=== PATIENT | male | born 1940 | race Caucasian/White ===

== ENCOUNTER → 2017-12-26 08:00 | Outpatient (CLI) | payer MEDICARE, BC, SELFPAY ==
--- NOTE | 2017-12-26 08:00 | LES_PTH ---
PATIENT: LIA GO LOC: [facility] U#:[id number] AGE/SX: 85/M ROOM: RE12/26/[address]: Dr. Quan Dos Santos MD : 1940 BED: DIS: SPEC #: [id number] RECD: 12/26/17 09:50 STATUS: MIC SARA #: [id number] KOFI: 12/26/17 08:[address]: Quan Dos Santos DEPT: SURGICAL PATHOLOGY RECD BY: Tanya Israel Tissues: A - Skin of forehead B - Skin of upper extremity and shoulder Procedures: Surgery Specimen Level IV HEADER OPERATION: Punch biopsy, and shave biopsy PRE-OP DIAGNOSIS: Uncertain neoplasm TISSUE SUBMITTED: A. Punch biopsy, right forehead, B. Shave biopsy, left scapula MICROSCOPIC DIAGNOSIS A. Right forehead, lesion, punch biopsy: Basal cell carcinoma. B. Left scapula, shave biopsy: Basal cell carcinoma, extending to peripheral and deep margins of the specimen. SJ:angie 12/27/17 MICROSCOPIC DESCRIPTION Slides are reviewed. GROSS DESCRIPTION A - Received in fixative is one container labeled with the patient's name and designated right forehead. The specimen consists of a cylindrical fragment of mejia tissue measuring 0.6 cm in length and 0.2 cm in diameter. The specimen is totally submitted in one cassette. B - Received in fixative is one container labeled with the patient's name and designated left scapula. The specimen consists of a light mejia shave biopsy of skin measuring 1.5 x 1 x 0.2 cm. The specimen is inked, serially sectioned and totally submitted in one cassette. / AM:angie 12/26/17 TC:0 CPT: 12448 x2
== END ==
PROVIDERS: Visit Provider Surgery
DX: D48.5 Neoplasm of uncertain behavior of skin (principal)
CPT/HCPCS: 88305

== ENCOUNTER 2018-01-28 08:42 | Day surgery (SDC) | payer MEDICARE, BC, SELFPAY ==
--- NOTE | 2018-01-21 10:59 | EKG12_ITS ---
Test Reason : PRE-OP Blood Pressure : / mmHG Vent. Rate : 055 BPM Atrial Rate : 055 BPM P-R Int : 174 ms QRS Dur : 098 ms QT Int : 422 ms P-R-T Axes : 041 -05 074 degrees QTc Int : 403 ms Sinus bradycardia Otherwise normal ECG Confirmed by LISA PEREZ, LEATHA ([id number]), clinical editor LUISANA WALLER ([id number]) on 01/22/2018 1:23:00 PM Referred By: Quan Dos Santos Confirmed By:LEATHA GONZALEZ MD
[2018-01-21 11:12] LABS: Hematocrit 42.6 % (40-54); Hemoglobin 14.9 g/dl (13.0-16.5); Mean Corpuscular Hgb 32.6 pg (27.0-32.0); Mean Corpuscular Volume 93.2 fL (80-94); Mean Platelet Vol. 9.5 fl (6.2-12.0); Platelet Count 165 K/mm3 (150-450); RBC Distribution Width CV 12.5 % (11.6-14.6); RBC Distribution Width SD 42.3 fl (35.1-43.9); Red Blood Count 4.57 M/mm3 (4.6-6.2); White Blood Count 5.6 K/mm3 (4.4-11.0)
[2018-01-21 11:32] LABS: Anion Gap 7 (5-15); BUN 20 mg/dL (7-18); BUN/Creat Ratio 18.9 RATIO (10-20); Calcium,Total 8.4 mg/dL (8.5-10.1); Chloride 106 mmol/L (98-107); Creatinine, Serum 1.06 mg/dL (0.70-1.30); EST Glomerular Filtration Rate 72 mL/min (>60); Est Glom Filt Rate - Afr Amer 87 mL/min (>60); Glucose 92 mg/dL (74-106); Sodium Level 140 mmol/L (136-145)
[2018-01-21 11:36] LABS: Scan Indicated on CBC? Y/N NO
[2018-01-28] VITALS (11 sets, daily range): BP systolic 151–185; BP diastolic 82–100; PULSE 52–59; RESP 16–18; TEMP 36.3–36.5; O2SAT 94–98; BMI 28.1
[2018-01-28] MEDS: Cefazolin 2 GM in 0.9% Normal Saline 100 ML IV (11:04)
--- NOTE | 2018-01-28 11:05 | TISS_PTH ---
PATIENT: LIA GO LOC: [facility] U#:[id number] AGE/SX: 77/M ROOM: RE01/28/[address]: Dr. Quan Dos Snatos MD : 1940 BED: DIS: 01/28/2018 SPEC #: [id number] RECD: 01/28/18 14:21 STATUS: MIC SARA #: [id number] KOFI: 01/28/18 11:[address]: Quan Dos Santos DEPT: SURGICAL PATHOLOGY RECD BY: Tanya Israel ENTERED: 01/28/18 15:13 SP TYPE: Tissue Bx JOSE RAFAEL DR: Dr. Andrae Dos Santos III, MD Tissues: A - Skin of forehead B - Skin of back, NOS Procedures: Surgery Specimen Level IV HEADER OPERATION: Wide excision right forehead skin cancer and wide re-excision PRE-OP DIAGNOSIS: Basal cell cancer right forehead; Basal cell cancer left upper back TISSUE SUBMITTED: A - Basal cell cancer right forehead, suture garcía lateral aspect of ellipse, B - Basal cell cancer left upper back, suture garcía superior margin MICROSCOPIC DIAGNOSIS A. Skin lesion of right forehead, excisional biopsy: Basal cell carcinoma, superficial nodular and focally ulcerated, completely excised. Actinic change with solar elastosis. B. Skin lesin of left upper back, excisional biopsy: Cicatrix. No evidence of malignancy. AM:angie 01/29/18 COMMENT Reference is made to the patient?s right forehead and left scapula shave biopsies ([id number]), in which basal cell carcinoma was identified. MICROSCOPIC DESCRIPTION Slides are reviewed. GROSS DESCRIPTION A - Received in fixative is one container labeled with the patient's name and designated basal cell cancer right forehead, suture garcía lateral aspect of ellipse. The specimen consists of a mejia-white skin ellipse measuring 6.5 x 2.5 cm and up to 0.5 cm in thickness. The specimen is oriented by a suture marking lateral aspect of ellipse assigned as 9 o?clock tip. The specimen is inked as follows: 12 o?clock margin ? black, 6 o?clock margin ? blue, 3 o?clock tip ? yellow, 9 o?clock tip ? green. The specimen is serially sectioned and submitted entirely in seven cassettes as follows: 1 ? medial and lateral tip (3 and 9 o?clock tip), 2-7 ? rest of the specimen. / SJ:angie 01/28/18 B - Received in fixative is one container labeled with the patient's name and designated basal cell carcinoma left upper back, suture garcía superior margin. The specimen consists of a mejia-white skin ellipse measuring 5 x 1.6 cm and up to 2 cm in thickness. A suture is noted at one tip marking superior margin. This is assigned as 12 o?clock tip. The specimen is inked as follows: 12 o?clock tip ? yellow, 6 o?clock tip ? green, 12 to 6 o?clock margin including 3 o?clock margin ? black and 6 to 12 o?clock margin including 9 o?clock margin ? blue. The specimen is serially sectioned and submitted entirely in eight cassettes as follows: 1 ? superior and inferior tip, 2-8 ? rest of the specimen. / SJ:angie 01/28/18 TC:0 CPT: 89439 x2
--- NOTE | 2018-01-28 11:13 | PCM.DC.GS ---
Discharge Diet: Light diet - advance as tolerated - if you have questions about your diet instructions, please talk to you doctor. Discharge Activity: May Not Drive - for 1 week or while taking narcotic pain medicine. May shower in (days): 1 Lifting Restrictions: 10 pounds Call your doctor if your incision/area has: Continuous Slow Oozing, Sudden Increased Bleeding, Increased Pain/ Swelling, Increased Redness, Foul Smelling Discharge Call your doctor if you observe: Fever of 101 or Higher Suture Line Care: Avoid Pulling/Pushing, Avoid Pinching/Bending Additional Dressing/Incision Instructions:: You may remove your dressings in 3 days. Allergies/Adverse Reactions: Allergies erythromycin base Allergy (Unknown, Verified 01/21/18 08:21) unknown Medications to take at Discharge nicolás seed oil-omega 3-6-9 1,000 mg (580 mg) capsule 1 cap PO .daily ea 12/06/17 cholecalciferol (vitamin D3) 2,000 unit capsule 2,000 unit PO QDAY cap 12/06/17 coenzyme Q10 100 mg capsule 100 mg PO QDAY 12/06/17 cranberry concentrate-ascorbic acid 4,200 mg-20 mg capsule 1 cap PO .daily ea 12/06/17 ginkgo biloba 60 mg capsule 60 mg PO QDAY cap 12/06/17 lutein 6 mg capsule 6 mg PO QDAY 12/06/17 lycopene 10 mg capsule 10 mg PO QDAY 12/06/17 multivitamin tablet 1 tab PO QAM 12/06/17 saw palmetto fruit 450 mg capsule 450 mg PO QDAY cap 12/06/17 selenium 200 mcg capsule 200 mcg PO QDAY 12/06/17 vitamin B complex capsule 1 cap PO .qod ea 12/06/17 vitamin K2 40 mcg tablet 40 mcg PO QDAY 12/06/17 Ascorbic Acid [Vitamin C] 1,000 mg PO DAILY 01/21/18 Primary Care Physician: Andrae Dos Santos III, MD [Primary Care Provider] - Please Follow Up With: Quan Dos Santos MD - [phone] When: Call to make an appointment to be seen on Sunday please
[2018-01-28] MEDS: Bupivacaine Mpf 0.5% 30 ML VIAL (11:24)
--- NOTE | 2018-01-28 12:58 | PCM.OPRPT ---
Problem List (1) Skin cancer Status: Acute Report of Operation Date of Procedure: 01/28/18 Pre-Operative Diagnosis: Basal cell skin cancer right forehead. Basal cell skin cancer left posterior shoulder Post-Operative Diagnosis: same Surgery/Procedure Performed:: Excision right forehead skin cancer and left posterior shoulder skin cancer Description of Surgical Findings:: Timeout and informed consent was obtained. 77-year-old gent was taken the operating room. He was initially placed supine on the table. The right forehead was sterilely prepped and 1% lidocaine mixed 50-50 with 0.5% Marcaine was used as a local anesthetic. A total of 20 cc was used. A transverse elliptical 6.5 x 2.4 cm ellipse of skin was created. Progressive subcutaneous flaps were raised completely raising the galea particularly posteriorly. A suture is marked in the medial aspect of the ellipse as a specimen was submitted. The wound edges were closed with interrupted 3-0 Vicryl subdermal stitches. The skin edges and finally approximated in a running mattress sutures of 5-0 nylon. 4 x 4 dressing followed by Coban dressing was uses a wrap. The patient was then placed in the right lateral decubitus position with careful ankle protection knee protection shoulder protection and head protection. The left upper back lesion was prepped and draped with ChloraPrep. 16 cc of local was used. A slightly oblique vertical excision measuring 4.5 x 1.6 cm was created. A suture was placed in the superior aspect of that ellipse. The wound edges approximated with interrupted 3-0 Vicryl subdermal stitches in the skin edges approximated with simple sutures of 3-0 nylon. Telfa and OpSite dressing applied. That specimen also was was submitted in formalin for analysis. Sponge, instrument, needle counts were reported to the surgeon to be correct. Blood loss was approximately 150 cc. There were no apparent complications. He was taken to the recovery or [facility] condition. Specimens include skin lesions ?2. Drains none. Blood loss 150 cc. Quan Dos Santos M.D., F.A.C.S. Type of Anesthesia:: Local MAC
== END 2018-01-28 15:03 | disposition home or self-care (01) ==
LOC: SDC 08:43 → AC 08:43
PROVIDERS: Family Provider Family Medicine; PCP Family Medicine; Visit Provider Surgery
PROC: (CPT 11606; principal; 2018-01-28 10:50)
DX: C44.319 Basal cell carcinoma of skin of other parts of face (principal); C44.619 Basal cell carcinoma of skin of left upper limb, including shoulder; L57.8 Other skin changes due to chronic exposure to nonionizing radiation; L90.5 Scar conditions and fibrosis of skin; K21.9 Gastro-esophageal reflux disease without esophagitis; E78.00 Pure hypercholesterolemia, unspecified; R97.20 Elevated prostate specific antigen [PSA]; Z79.899 Other long term (current) drug therapy; Z86.19 Personal history of other infectious and parasitic diseases; Z87.891 Personal history of nicotine dependence
CPT/HCPCS: 11606; 11646; 36415; 80048; 85027; 88305; J7120

== ENCOUNTER 2021-03-04 06:17 | Emergency (ER) | payer MEDICARE, BC, SELFPAY ==
[2021-03-04 06:17] VITALS: PULSE 72; RESP 18; TEMP 36.1; O2SAT 97; BMI 26.8
[2021-03-04 06:22] VITALS: BP 169/90; PULSE 72; RESP 18; TEMP 36.1; O2SAT 97
[2021-03-04 06:24] VITALS: BP 169/90
--- NOTE | 2021-03-04 07:40 | EDS_ITS ---
HPI History of Present Illness Chief Complaint: Male Pain/Injury Informant: patient Pain Onset: Weeks (1) Context: Gradual Onset and - (soreness) Timing: Continuous Current Severity: Moderate Maximum Severity: Moderate Worsened by: touching affected area, walking and causing rubbing Relieved by: leaving alone Penile Discharge Genital Discharge Amount: None Urinary Symptoms Genitourinary Symptoms: No Symptoms Narrative Narrative: Patient presenting with about a week of gradual worsening of a recurrent abscess on his penis. He states it has been oozing material off and on he has been squeezing it here and there to get it out, but all of a sudden tonight it has become much larger and more sore. He had it I&Dd once in the past, and is requesting that again. He denies any systemic symptoms or problems urinating or scrotal pain. [facility] Medical History Acid reflux Skin lesion of face Home Medications nicolás seed oil-omega 3-6-9 1,000 mg (580 mg) capsule 1 cap PO .daily ea 12/06/17 [History Last Taken Unknown] cholecalciferol (vitamin D3) 50 mcg (2,000 unit) capsule 2,000 unit PO QDAY cap 12/06/17 [History Last Taken Unknown] coenzyme Q10 100 mg capsule 100 mg PO QDAY 12/06/17 [History Last Taken Unknown] cranberry concentrate-ascorbic acid 4,200 mg-20 mg capsule 1 cap PO .daily ea 12/06/17 [History Last Taken Unknown] ginkgo biloba 60 mg capsule 60 mg PO QDAY cap 12/06/17 [History Last Taken Unknown] lutein 6 mg capsule 6 mg PO QDAY 12/06/17 [History Last Taken Unknown] lycopene 10 mg capsule 10 mg PO QDAY 12/06/17 [History Last Taken Unknown] multivitamin 1 tab PO QAM 12/06/17 [History Last Taken Unknown] saw palmetto 450 mg capsule 450 mg PO QDAY cap 12/06/17 [History Last Taken Unknown] selenium 200 mcg capsule 200 mcg PO QDAY 12/06/17 [History Last Taken Unknown] vitamin B complex 1 cap PO .qod ea 12/06/17 [History Last Taken Unknown] vitamin K2 40 mcg tablet 40 mcg PO QDAY 12/06/17 [History Last Taken Unknown] ascorbic acid (vitamin C) 1,000 mg PO DAILY 01/21/18 [History Last Taken Unknown] sulfamethoxazole-trimethoprim [Bactrim DS] 1 tab PO BID #20 tab 03/04/21 [Rx Last Taken Unknown] Allergy/AdvReac Type Severity Reaction Status Date / Time erythromycin base Allergy Unknown unknown Verified 03/04/21 06:22 Family History Sister Breast cancer Brother Heart disease High cholesterol Surgical History History of appendectomy History of radical excision of skin lesion history sclerosing varicose veins Social History Smoking Status: Former smoker alcohol intake: current alcohol intake frequency: a few times a month substance use type: does not use ROS ROS ED Constitutional Constitutional ED: Denies chills or fever(s) Genitourinary Genitourinary ED: Reports as per HPI and penile swelling; Denies dysuria, hematuria or urinary frequency Integumentary Reports as per HPI and abscess; Denies rash EXAM Physical Exam Const Vital Signs: 03/04/21 06:17 03/04/21 06:22 03/04/21 06:24 Temperature 97 F L 97 F L Temperature Source Temporal Temporal Pulse Rate 72 72 Respiratory Rate 18 18 Blood Pressure 169/90 H 169/90 H Blood Pressure Mean 116 116 Pulse Ox 97 97 Positive well nourished and well developed General Appearance ED: well developed and NAD Penis: circumcised and other Focally swollen area right lateral distal shaft, just proximal to the alicia radiata and not involving the glans, 2 punctate areas of purulent discharge expressible. Entire area is quite tender. Meatus: meatus normal Scrotum: testes descended bilaterally; Negative for tenderness, erythema or scrotal swelling Neuro oriented x3 and CN's II-XII intact bilaterally Sensorium / Orientation: alert Psych mental status grossly normal and thought process normal Skin Skin Narrative: Single abscess approximately 2 or 3 cm in diameter distal right penile shaft as above; scant amount of purulent material draining from 2 different areas on it. No other lesions. Rashes: no rashes MDM MDM MDM Narrative Medical decision making narrative: As per the procedure note, the infection was drained. It is not large enough to place a packing. It was dressed with bacitracin by myself. My suspicion is that this is a residual epidermoid cyst that became reinfected. The patient said that he has been having residual something underneath the skin ever since this first happened, so I am referring him to urology for reevaluation after the infection has healed. He is comfortable with this plan. He was placed on Bactrim. Procedures Other Procedures Procedure(s): Incision and drainage abscess penis-the area was locally anesthetized with 3 cc plain 1% lidocaine after prepping with isopropanol. I then stabbed the dorsal most draining area as superficially as possible with a #11 blade, yielding purulent material. I deloculated this area into the other draining area as best that I could bluntly. There was no significant bleeding with this. I was then able to express quite a bit of solid white material that was not pus, more consistent with an epidermoid cyst which is probably what this lesion is to begin with. No suturing needed, very small incision was made with minimal bleeding. I am confident that I did not enter the corpora. Discharge Plan Triage Chief Complaint: Male Pain/Injury ED Provider: Austin Ewing Dx/Rx/DC Orders Clinical Impression: Abscess of shaft of penis, Epidermoid cyst of skin of penis Instructions: ED Abscess Incision And Drainage, Epidermoid Cyst Infect I and D Prescriptions: New sulfamethoxazole-trimethoprim [Bactrim DS] 800-160 mg tablet 1 tab PO BID Qty: 20 RF: 0 No Action lycopene 10 mg capsule 10 mg PO QDAY RF: 0 selenium 200 mcg capsule 200 mcg capsule 200 mcg PO QDAY RF: 0 lutein 6 mg capsule 6 mg PO QDAY RF: 0 coenzyme Q10 100 mg capsule 100 mg PO QDAY RF: 0 multivitamin [One Daily Multivitamin] tablet 1 tab PO QAM RF: 0 nicolás seed oil-omega 3-6-9 1,000 mg (580 mg) capsule 1 cap PO .daily RF: 0 cranberry conc-ascorbic acid 4,200-20 mg capsule 1 cap PO .daily RF: 0 cholecalciferol (vitamin D3) 2,000 unit capsule 2,000 unit PO QDAY RF: 0 vitamin B complex capsule 1 cap PO .qod RF: 0 ginkgo biloba 60 mg capsule 60 mg PO QDAY RF: 0 saw palmetto 450 mg capsule 450 mg PO QDAY RF: 0 vitamin K2 40 mcg tablet 40 mcg PO QDAY RF: 0 ascorbic acid (vitamin C) 1,000 MG tablet 1,000 mg PO DAILY RF: 0 Primary Care Provider: Andrae Dos Santos III Referrals: Andrae Dos Santos III, MD [Primary Care Provider] - Kris Alvarez MD [STAFF PHYSICIAN] - 1-2 Weeks Activity Restrictions/Additional Instructions: Warm soapy soaks once or twice daily until there is no more discharge or skin opening. After soaks, dry and place new dressing with antibiotic ointment. Disposition Disposition: Home, self care Discharge Date/Time: 03/04/21 07:56
[2021-03-04 07:55] VITALS: BP 134/76; PULSE 71; RESP 15; O2SAT 98
[2021-03-04] MEDS: Lidocaine 1% (20 ml mdv) 20 ML Vial INFILT (07:55)
== END 2021-03-04 07:56 | disposition home or self-care (01) ==
PROVIDERS: Emergency Provider Emergency Medicine; PCP Family Medicine
DX: N48.21 Abscess of corpus cavernosum and penis (principal); L72.8 Other follicular cysts of the skin and subcutaneous tissue; Z87.891 Personal history of nicotine dependence; K21.9 Gastro-esophageal reflux disease without esophagitis
CPT/HCPCS: 99282

== ENCOUNTER → 2022-04-25 | Outpatient (CLI) | payer MEDICARE, BC, SELFPAY ==
--- NOTE | 2022-04-25 13:39 | STRESSREP_ITS ---
Stress Test Report Date: 04-25-2022 Procedure: Exercise tolerance test/imaging study Indications: Left shoulder pain; abnormal ECG Consent: Per the patient Procedure: The patient exercised on a Justice protocol for 6 minutes completing Stage II achieving a peak heart rate of 130 bpm (94% predicted maximal heart rate) with a peak blood pressure 148/62 mmHg and a peak MET capacity of 7 METs. The baseline ECG demonstrated sinus bradycardia. The peak exercise ECG demonstrated no obvious ECG changes. There was a rare PVC during exercise. The functional capacity was considered good. There was no complaint of chest discomfort during exercise or recovery. The examination was discontinued secondary to dyspnea. Impression: 1. Technically adequate (percent predicted maximal heart rate greater than 85%) exercise tolerance test 2. Peak exercise ECG with no obvious ECG changes 3. There was a rare PVC during exercise 4. Nuclear images pending Myocardial perfusion imaging study: Technique: The patient was injected with 14.1 mCi of technetium 99m Cardiolite and subsequently rest SPECT Cardiolite nuclear imaging was obtained in the horizontal long, vertical long, and short axis views. The patient exercised on a Justice protocol for 6 minutes completing Stage II achieving a peak heart rate of 130 bpm (94% predicted maximal heart rate) with a peak blood pressure 148/62 mmHg and a peak MET capacity of 7 METs. The patient was injected with 44.3 mCi of technetium 99m Cardiolite and subsequently stress SPECT Cardiolite nuclear imaging was obtained in the horizontal long, vertical long, and short axis views. A gated Cardiolite study at peak stress was obtained. Interpretation: Rest and stress SPECT Cardiolite nuclear imaging status post realignment, normalization, and attenuation correction, demonstrates the appearance of relative uniform tracer uptake and myocardial perfusion appearing within normal limits. There is end systolic thickening and brightening. The gated Cardiolite study demonstrates myocardial thickening and inward wall motion. The reported LVEF is 77%. Impression: 1. Rest and stress SPECT Cardiolite nuclear imaging demonstrate relative uniform tracer uptake and myocardial perfusion appearing within normal limits. 2. The gated Cardiolite study reports an LVEF of 77%. This note was generated with [employer] software. It may contain incorrect words, spelling, and punctuation that were not noted in checking the note before signing.
== END | disposition home or self-care (01) ==
LOC: CVS 06:22
PROVIDERS: PCP Family Medicine; Visit Provider Family Medicine
DX: R94.31 Abnormal electrocardiogram [ECG] [EKG] (principal); M25.512 Pain in left shoulder
CPT/HCPCS: 78452; 93017; A9500; A4216